=== PATIENT | male | born 2000 ===

== ENCOUNTER 2019-01-23 19:53 | Emergency (ER) | payer MEDICAID ==
[2019-01-23] MEDS ORDERED: cefTRIAXone 500 MG in Lidocaine 1% 2 ML IM ONE (20:12)
[2019-01-23] MEDS ORDERED: Azithromycin 250 MG Tab PO STA (20:13)
--- NOTE | 2019-01-23 20:34 | EDM.PDOC ---
ED HPI GENERAL MEDICAL PROBLEM - General Chief Complaint: Genitourinary Problem Stated Complaint: PAINFUL WHEN URINATES,POSSILBLE STD Time Seen by Provider: 01/23/19 20:02 Source of Information: Reports: Patient History Limitations: Reports: No Limitations - History of Present Illness INITIAL COMMENTS - FREE TEXT/NARRATIVE: HISTORY AND PHYSICAL: History of present illness: Patient is a 18-year-old male who presents to the ED today with concern of burning with urination 2 days. Patient states 4-5 days ago he did have unprotected sexual intercourse with a male partner. Patient denies any other symptoms or concerns. Patient denies fever, chills, chest pain, shortness of breath, or cough. Denies headache, neck stiff ness, change in vision, syncope, or near syncope. Denies nausea, vomiting, abdominal pain, diarrhea, constipation. Has not noted any blood in urine or stool. Patient has been eating and drinking appropriately. Review of systems: As per history of present illness and below otherwise all systems reviewed and negative. Past medical history: As per history of present illness and as reviewed below otherwise noncontributory. Surgical history: As per history of present illness and as reviewed below otherwise noncontributory. Social history: See social history for further information Family history: As per history of present illness and as reviewed below otherwise noncontributory. Physical exam: General: Patient is alert, oriented, and in no acute distress. Patient sitting comfortably on exam table. HEENT: Atraumatic, normocephalic, pupils equal and reactive bilaterally, negative for conjunctival pallor or scleral icterus, mucous membranes moist, TMs normal bilaterally, throat clear, neck supple, nontender, trachea midline. No drooling or trismus noted. No meningeal signs. No hot potato voice noted. Lungs: Clear to auscultation, breath sounds equal bilaterally, chest nontender. Heart: S1S2, regular rate and rhythm without overt murmur Abdomen: Soft, nondistended, nontender. Negative for masses or hepatosplenomegaly. Negative for costovertebral tenderness. Pelvis: Stable nontender. Genitourinary: Deferred. Rectal: Deferred. Skin: Intact, warm, dry. No lesions or rashes noted. Extremities: Atraumatic, negative for cords or calf pain. Neurovascular unremarkable. Neuro: Awake, alert, oriented. Cranial nerves II through XII unremarkable. Cerebellum unremarkable. Motor and sensory unremarkable throughout. Exam nonfocal. Notes: Discussed the importance for follow-up with a primary care provider. Also discussed with patient that if he desires full STD screening that he can get this done with his primary care or at the [facility]. Voices understanding and is agreeable to plan of care. Denies any further questions or concerns at this time. Diagnostics: UA, Gonorrhea and Chlamydia, bedside glucose Therapeutics: Azithromycin, Rocephin Prescription: Doxycycline Impression: Urinary tract infection High risk sexual behavior Plan: 1. Take medication as prescribed. You can alternate ibuprofen and Tylenol as checked for pain and discomfort. 2. Follow-up with her primary care provider as discussed. Return to the ED as needed and as discussed. 3. If he desired full STD screening, you can get this done with your primary care provider or at the [facility]. Definitive disposition and diagnosis as appropriate pending reevaluation and review of above. - Related Data Allergies Allergy/AdvReac Type Severity Reaction Status Date / Time No Known Allergies Allergy Verified 01/23/19 20:06 Home Meds: Home Meds Doxycycline [Vibramycin] 100 mg PO BID 10 Days #20 cap 01/23/19 [Rx] Past Medical History - Past Health History Medical/Surgical History: Denies Medical/Surgical History Social & Family History - Family History Family Medical History: Noncontributory - Tobacco Use Smoking Status *Q: Never Smoker - Recreational Drug Use Recreational Drug Use: No ED ROS GENERAL - Review of Systems Review Of Systems: Comprehensive ROS is negative, except as noted in HPI. ED EXAM, GENERAL - Physical Exam Exam: See Below (See dictation) Course - Vital Signs Last Recorded V/S: Last Vital Signs Temp 97.5 F 01/23/19 20:07 Pulse 110 01/23/19 20:07 Resp 20 01/23/19 20:07 BP 136/92 H 01/23/19 20:07 Pulse Ox 96 01/23/19 20:07 - Orders/Labs/Meds Orders: Active Orders 24 hr Category Date Time Status Glucose [Blood Glucose Check, Bedside] [RC] ONETIME Care 01/23/19 20:51 Active CHLAMYDIA AND GONORRHEA BY TMA Stat Lab 01/23/19 20:08 Received CULTURE URINE [RM] Stat Lab 01/23/19 20:08 Received Labs: Laboratory Tests 01/23/19 Range/Units 20:08 Urine Color YELLOW Urine Appearance HAZY Urine pH 6.5 (5.0-8.0) Ur Specific [place] 1.025 (1.001-1.035) Urine Protein NEGATIVE (NEGATIVE) mg/dL Urine Glucose (UA) 250 H (NEGATIVE) mg/dL Urine Ketones NEGATIVE (NEGATIVE) mg/dL Urine Occult Blood NEGATIVE (NEGATIVE) Urine Nitrite NEGATIVE (NEGATIVE) Urine Bilirubin NEGATIVE (NEGATIVE) Urine Urobilinogen 1.0 (<2.0) EU/dL Ur Leukocyte Esterase TRACE H (NEGATIVE) Urine RBC 0-3 (0-2/HPF) Urine WBC 4-7 (0-5/HPF) Ur Epithelial Cells RARE (NONE-FEW) Urine Bacteria 3+ H (NEGATIVE) Urine Mucus LIGHT (NONE-MOD) Meds: Medications Discontinued Medications Generic Name Dose Route Start Last Admin Trade Name Freq PRN Reason Stop Dose Admin Azithromycin 1,000 mg 01/23/19 20:13 01/23/19 20:31 Zithromax PO 01/23/19 20:14 1,000 mg NOW STA Administration Ceftriaxone Sodium 500 mg/ 2 mls @ 2 mls/sec 01/23/19 20:12 01/23/19 20:32 Lidocaine HCl IM 01/23/19 20:13 2 mls/sec ONETIME ONE Administration Departure - Departure Time of Disposition: 20:56 Disposition: Home, Self-Care 01 Clinical Impression: Urinary tract infection Qualifiers: Urinary tract infection type: acute cystitis Hematuria presence: without hematuria Qualified Code(s): N30.00 - Acute cystitis without hematuria High risk sexual behavior Qualifiers: High risk sexual behavior type: homosexual Qualified Code(s): Z72.52 - High risk homosexual behavior - Discharge Information Prescriptions: Doxycycline [Vibramycin] 100 mg PO BID 10 Days #20 cap Referrals: PCP,Not In Area [Primary Care Provider] - Forms: ED Department Discharge Additional Instructions: The following information is given to patients seen in the emergency department who are being discharged to home. This information is to outline your options for follow-up care. We provide all patients seen in our emergency department with a follow-up referral. The need for follow-up, as well as the timing and circumstances, are variable depending upon the specifics of your emergency department visit. If you don't have a primary care physician on staff, we will provide you with a referral. We always advise you to contact your personal physician following an emergency department visit to inform them of the circumstance of the visit and for follow-up with them and/or the need for any referrals to a consulting specialist. The emergency department will also refer you to a specialist when appropriate. This referral assures that you have the opportunity for follow-up care with a specialist. All of these measure are taken in an effort to provide you with optimal care, which includes your follow-up. Under all circumstances we always encourage you to contact your private physician who remains a resource for coordinating your care. When calling for follow-up care, please make the office aware that this follow-up is from your recent emergency room visit. If for any reason you are refused follow-up, please contact the [facility] Emergency Department at and asked to speak to the emergency department charge nurse. [facility] [address] [place] [id number] [facility] [address] [place] [id number] [facility] [address] [place] [address] 1. Take medication as prescribed. You can alternate ibuprofen and Tylenol as checked for pain and discomfort. 2. Follow-up with her primary care provider as discussed. Return to the ED as needed and as discussed. 3. If he desired full STD screening, you can get this done with your primary care provider or at the [facility]. - My Orders Last 24 Hours: My Active Orders 01/23/19 20:08 CHLAMYDIA AND GONORRHEA BY TMA Stat CULTURE URINE [RM] Stat 01/23/19 20:51 Glucose [Blood Glucose Check, Bedside] [RC] ONETIME - Assessment/Plan Last 24 Hours: My Active Orders 01/23/19 20:08 CHLAMYDIA AND GONORRHEA BY TMA Stat CULTURE URINE [RM] Stat 01/23/19 20:51 Glucose [Blood Glucose Check, Bedside] [RC] ONETIME
== END 2019-01-23 21:10 | disposition home or self-care (01) ==
LOC: MW.ED 19:53 → EDBD 19:53 → MW.ED 21:10
DX: N30.00 Acute cystitis without hematuria (principal); Z72.52 High risk homosexual behavior
CPT/HCPCS: 81001; 82962; 87086; 87491; 87591; 99283; A9270; J0696; J2001

== ENCOUNTER 2019-11-05 17:30 | Emergency (ER) | payer MEDICAID ==
[2019-11-05] MEDS ORDERED: Ketorolac 60 MG/2 ML SDV IM ONE (17:45)
--- NOTE | 2019-11-05 18:08 | CR ---
INDICATION: Left foot pain. TECHNIQUE: Three views left foot. COMPARISON: No prior. FINDINGS: No acute fracture. Joint spaces maintained. No malalignment. No radiopaque foreign body or soft tissue gas. IMPRESSION: No acute fracture or malalignment. Dictated by Jaxon Shelton MD @ 11/05/2019 6:07:04 PM Dictated by: Jaxon Shelton MD @ 11/05/2019 18:07:15 (Electronically Signed)
--- NOTE | 2019-11-05 18:21 | EDM.PDOC ---
ED HPI GENERAL MEDICAL PROBLEM - General Chief Complaint: Lower Extremity Injury/Pain Stated Complaint: LT FOOT PAIN Time Seen by Provider: 11/05/19 17:34 Source of Information: Reports: Patient History Limitations: Reports: No Limitations - History of Present Illness INITIAL COMMENTS - FREE TEXT/NARRATIVE: HISTORY AND PHYSICAL: History of present illness: Patient is a 19-year-old male who presents to the emergency room with complaints of left anterior midfoot pain. He states he was running approximately a week ago when he felt pain to the top of his foot. This pain has continued and radiates up the foot and into the plantar surface of his foot. He denies any injury, trauma or falls. He denies any numbness, tingling, saddle paresthesia or weakness of the extremity. Pain is notable with weightbearing. Patient denies any fever, chills, headache, change in vision, syncope or near syncope. Denies any chest pain, back pain, shortness of breath or cough. Denies any GI or symptoms. Patient has been eating and drinking appropriately. Review of systems: As per history of present illness and below otherwise all systems reviewed and negative. Past medical history: As per history of present illness and as reviewed below otherwise noncontributory. Surgical history: As per history of present illness and as reviewed below otherwise noncontributory. Social history: See social history for further information Family history: As per history of present illness and as reviewed below otherwise noncontributory. Physical exam: General: Well developed and well nourished. Alert and orientated x 3. Nontoxic in appearance and in no acute distress. Vital signs are stable and have been reviewed by me. Nursing notes were reviewed. HEENT: Atraumatic, normocephalic, pupils equal and reactive bilaterally, negative for conjunctival pallor or scleral icterus, mucous membranes moist, trachea midline. No drooling or trismus noted. No meningeal signs. No hot potato voice noted. Lungs: Clear to auscultation, breath sounds equal bilaterally, chest nontender. Normal work of breathing, no accessory muscles used. Heart: S1S2, regular rate and rhythm without overt murmur Abdomen: Soft, nondistended, nontender. Skin: Intact, warm, dry. No lesions or rashes noted. Hematologic: No petechiae or purpra. Mucosa appropriate color and normal nail bed color and refill. Extremities: Atraumatic, moves all extremities per self without difficulty or deficits, pain with palpation of the dorsal aspect of the left mid foot. No malleolus tenderness. Good flexion and extension of the foot. Strong pedal and pretibial pulse. Negative for cords or calf pain. Neurovascular unremarkable. Neuro: Awake, alert, oriented. Cranial nerves II through XII unremarkable. Cerebellum unremarkable. Motor and sensory unremarkable throughout. Exam nonfocal. Psychiatric: Mood and affect are appropriate. Normal thought process. Answering questions appropriately. Notes: X-ray shows no bony abnormalities. I have spoken with the patient/caregiver and discussed today's findings, in addition to providing specific details for plan of care. Reassessment at the time of disposition demonstrates that the patient is in no acute distress. The patient has remained stable throughout the entire ED visit and is without objective evidence for acute process requiring urgent intervention or hospitalization. The patient is stable for discharge, counseling was provided as , and we discussed in great detail signs and symptoms that would prompt them to return to the Emergency Department. Medication, follow up and supportive care measures were reviewed and discussed. Voices understanding and is agreeable to plan of care. Denies any further questions or concerns at this time. Diagnostics: Foot x-ray Therapeutics: [place] Prescription: Diclofenac Impression: Foot tendinitis Plan: 1. Today your exam is consistent with a tendinitis of the extensor tendon of your foot. Rest, ice, elevate as able. Limit physical activities that cause pain. Try to be nonweightbearing to allow the foot to rest/heal over the next week. 2. Tylenol and/or ibuprofen as needed for pain management. 3. We encourage you to follow up with your primary care provider and/or recommended specialist in the next few days for re-evaluation and further care/management. If your symptoms should worsen, new symptoms develop or any of the signs and symptoms we discussed should arise please return to the emergency room or call 911 (if needed). Definitive disposition and diagnosis as appropriate pending reevaluation and review of above. L top foot Pain Score (Numeric/FACES): 5 - Related Data Allergies Allergy/AdvReac Type Severity Reaction Status Date / Time No Known Allergies Allergy Verified 11/05/19 17:36 Home Meds: Home Meds Diclofenac Sodium [Voltaren] 75 mg PO BIDMEALS PRN #30 tab.cr 11/05/19 [Rx] Past Medical History - Past Health History Medical/Surgical History: Denies Medical/Surgical History - Infectious Disease History Infectious Disease History: Reports: Chicken Pox Social & Family History - Family History Family Medical History: Noncontributory - Caffeine Use Caffeine Use: Reports: Energy Drinks - Recreational Drug Use Recreational Drug Use: No Review of Systems - Review of Systems Review Of Systems: Comprehensive ROS is negative, except as noted in HPI. ED EXAM, GENERAL - Physical Exam Exam: See Below (See dictation) Course - Vital Signs Last Recorded V/S: Last Vital Signs Temp 97.5 F 11/05/19 17:37 Pulse 88 11/05/19 17:37 Resp 20 11/05/19 17:37 BP 119/77 11/05/19 17:37 Pulse Ox 96 11/05/19 17:37 - Orders/Labs/Meds Orders: Active Orders 24 hr Category Date Time Status DME for Discharge [COMM] Stat Oth 11/05/19 18:23 Ordered Meds: Medications Discontinued Medications Generic Name Dose Route Start Last Admin Trade Name Adam PRN Reason Stop Dose Admin Ketorolac Tromethamine 60 mg 11/05/19 17:45 11/05/19 17:56 Toradol IM 11/05/19 17:46 60 mg ONETIME ONE Administration Departure - Departure Time of Disposition: 18:20 Disposition: Home, Self-Care 01 Clinical Impression: Foot tendinitis - Discharge Information Prescriptions: Diclofenac Sodium [Voltaren] 75 mg PO BIDMEALS PRN #30 tab.cr PRN Reason: Pain Referrals: PCP,None [Primary Care Provider] - Forms: ED Department Discharge Additional Instructions: The following information is given to patients seen in the emergency department who are being discharged to home. This information is to outline your options for follow-up care. We provide all patients seen in our emergency department with a follow-up referral. The need for follow-up, as well as the timing and circumstances, are variable depending upon the specifics of your emergency department visit. If you don't have a primary care physician on staff, we will provide you with a referral. We always advise you to contact your personal physician following an emergency department visit to inform them of the circumstance of the visit and for follow-up with them and/or the need for any referrals to a consulting spe cialist. The emergency department will also refer you to a specialist when appropriate. This referral assures that you have the opportunity for follow-up care with a specialist. All of these measure are taken in an effort to provide you with optimal care, which includes your follow-up. Under all circumstances we always encourage you to contact your private physician who remains a resource for coordinating your care. When calling for follow-up care, please make the office aware that this follow-up is from your recent emergency room visit. If for any reason you are refused follow-up, please contact the [facility] Emergency Department at and asked to speak to the emergency department charge nurse. [facility] [address] [place] [id number] [facility] [address] [place] [id number] Thank you for choosing the [facility] emergency department in [place] for your medical needs today. It was a pleasure caring for you. Today you were seen in the emergency department for foot pain. 1. Today your exam is consistent with a tendinitis of the extensor tendon of your foot. Rest, ice, elevate as able. Limit physical activities that cause pain. Try to be nonweightbearing to allow the foot to rest/heal over the next week. 2. Tylenol and/or ibuprofen as needed for pain management. 3. We encourage you to follow up with your primary care provider and/or recommended specialist in the next few days for re-evaluation and further care/management. If your symptoms should worsen, new symptoms develop or any of the signs and symptoms we discussed should arise please return to the emergency room or call 911 (if needed). Sepsis Event Note (ED) - Evaluation Sepsis Screening Result: No Definite Risk - Focused Exam Vital Signs: Vital Signs Temp Pulse Resp BP Pulse Ox 11/05/19 17:37 97.5 F 88 20 119/77 96 - My Orders Last 24 Hours: My Active Orders 11/05/19 18:23 DME for Discharge [COMM] Stat - Assessment/Plan Last 24 Hours: My Active Orders 11/05/19 18:23 DME for Discharge [COMM] Stat
== END 2019-11-05 18:37 | disposition home or self-care (01) ==
LOC: MW.ED 17:30
DX: M77.9 Enthesopathy, unspecified (principal)
CPT/HCPCS: 73630; 96372; 99283; J1885

== ENCOUNTER 2020-06-24 18:21 | Emergency (ER) | payer BC, MEDICAID ==
[2020-06-24] MEDS ORDERED: Ketorolac 30 MG/ML SDV IVPUSH ONE (18:51)
[2020-06-24] MEDS ORDERED: Sodium Chloride 0.9% 1,000 ML IV ONE ×2 (18:51→20:03)
--- NOTE | 2020-06-24 18:51 | EDM.PDOC ---
ED HPI GENERAL MEDICAL PROBLEM - General Chief Complaint: Abdominal Pain Stated Complaint: ABDOMINAL PAIN Time Seen by Provider: 06/24/20 18:34 Source of Information: Reports: Patient History Limitations: Reports: No Limitations - History of Present Illness INITIAL COMMENTS - FREE TEXT/NARRATIVE: HISTORY AND PHYSICAL: History of present illness: Patient is a 20-year-old male who presents to the emergency room with complaints of nausea, vomiting, abdominal pain and diarrhea since . He initially started with nausea, vomiting and abdominal pain. He thought he was constipated and took a laxative. Shortly after he developed diarrhea. He states the nausea and vomiting have resolved but continues to have abdominal pain and diarrhea. He has been using Imodium over the past 2 days and the stools have lessened but have not resolved. Patient denies any fever, chills, headache, change in vision, syncope or near syncope. Denies any chest pain, back pain, shortness of breath or cough. Denies any nausea, vomiting, constipation or dysuria. Has not noted any blood in urine or stool. Patient has been eating and drinking appropriately. No recent travel or antibiotic use. Review of systems: As per history of present illness and below otherwise all systems reviewed and negative. Past medical history: As per history of present illness and as reviewed below otherwise noncontributory. Surgical history: As per history of present illness and as reviewed below otherwise noncontributory. Social history: See social history for further information Family history: As per history of present illness and as reviewed below otherwise noncontributory. Physical exam: General: Well developed and well nourished 20 year old male. Alert and orientated x 3. Nontoxic in appearance and in no acute distress. Vital signs are stable and have been reviewed by me. Nursing notes were reviewed. HEENT: Atraumatic, normocephalic, pupils equal and reactive bilaterally, nega tive for conjunctival pallor or scleral icterus, mucous membranes moist, trachea midline. No drooling or trismus noted. No meningeal signs. No hot potato voice noted. Lungs: Clear to auscultation bilaterally. No wheezes, rales, or rhonchi. Chest nontender. Normal work of breathing, no accessory muscles used. Heart: S1S2, regular rate and rhythm without overt murmur, gallops, or rubs. No JVD. No peripheral edema Abdomen: Soft, nondistended, mild RUQ pain. Normoactive bowel sounds. Negative for masses or costovertebral tenderness. Skin: Intact, warm, dry. No lesions or rashes noted. Hematologic: No petechiae or purpra. Mucosa appropriate color and normal nail bed color and refill. Extremities: Atraumatic, moves all extremities per self without difficulty or deficits, negative for cords or calf pain. Neurovascular unremarkable. Neuro: Awake, alert, oriented. Cranial nerves II through XII unremarkable. Cerebellum unremarkable. Motor and sensory unremarkable throughout. Exam nonfocal. Psychiatric: Mood and affect are appropriate. Normal thought process. Answering questions appropriately. Notes: *This patient was seen and evaluated during the 2019 SARS-CoV-2 novel coronavirus pandemic period. Community viral transmission is ongoing at time of this encounter and the emergency department is operating under pandemic response procedures. Patient has note been able to give stool sample while here. He does have potassium on 2.9, will do IV replacement and PO as he is tolerating PO. We discussed admssion, he declines, stating he can't miss work. We discussed the risks of untreated hypokalemia, espeicially if he continues to have diarrhea. He is aware of the risks, will stay for one dose of IV potassium. VSS. Upon nursing preparing patient for medications, he now declines the IV potassium. States the IV hurts and he wants to go home. He is aware of the risks of leaving with untreated potassium. I have talked with the patient about today's findings, in addition to providing specific details for plan of care. Stool sample kit with education given to patient, encouraged him to bring sample if he continues to have diarrhea. Reassessment at the time of disposition demonstrates that the patient is in no acute distress. Counseling was provided and we discussed in great detail signs and symptoms that would prompt them to return to the Emergency Department. Medication, follow up and supportive care measures were reviewed and discussed. Voices understanding to plan of care. Denies any further questions or concerns at this time. Diagnostics: CBC, CMP, Lipase, UA, Stool Studies Therapeutics: IV fluids, Toradol, K-Dur, K-Timbo IV Prescription: K-Dur (#10) Impression: Hypokalemia Diarrhea Plan: 1. You were evaluated today on an emergent basis. Your potassium was low today, requiring oral replacement. Please make sure you are taking the oral potassium replacement as directed. Increase your fluids. If you continue having loose stools/diarrhea, please bring a sample for outpatient labs as we discussed. 2. You can alternate Tylenol and ibuprofen as needed for pain and fever management. 3. We encourage you to follow up with your primary care provider and/or recommended specialist in the next few days for re-evaluation and further care/management. 4. If your symptoms should worsen, new symptoms develop or any of the signs and symptoms we discussed should arise please return to the emergency room or call 911 (if needed). Definitive disposition and diagnosis as appropriate pending reevaluation and review of above. - Related Data Allergies Allergy/AdvReac Type Severity Reaction Status Date / Time No Known Allergies Allergy Verified 06/24/20 18:41 Home Meds: Home Meds Potassium Chloride 20 meq PO BID 5 Days #10 tablet.er 06/24/20 [Rx] Past Medical History - Past Health History Medical/Surgical History: Denies Medical/Surgical History HEENT History: Reports: None Cardiovascular History: Reports: None Respiratory History: Reports: None Gastrointestinal History: Reports: None Genitourinary History: Reports: None Musculoskeletal History: Reports: None Neurological History: Reports: None Psychiatric History: Reports: None Endocrine/Metabolic History: Reports: None Hematologic History: Reports: None Immunologic History: Reports: None Oncologic (Cancer) History: Reports: None Dermatologic History: Reports: None - Infectious Disease History Infectious Disease History: Reports: Chicken Pox - Past Surgical History Head Surgeries/Procedures: Reports: None HEENT Surgical History: Reports: None Cardiovascular Surgical History: Reports: None Respiratory Surgical History: Reports: None GI Surgical History: Reports: None Male Surgical History: Reports: None Endocrine Surgical History: Reports: None Neurological Surgical History: Reports: None Musculoskeletal Surgical History: Reports: None Oncologic Surgical History: Reports: None Dermatological Surgical History: Reports: None Social & Family History - Family History Family Medical History: No Pertinent Family History - Tobacco Use Tobacco Use Status *Q: Never Tobacco User - Caffeine Use Caffeine Use: Reports: None - Recreational Drug Use Recreational Drug Use: No ED ROS GENERAL - Review of Systems Review Of Systems: Comprehensive ROS is negative, except as noted in HPI. ED EXAM, GI/ABD - Physical Exam Exam: See Below (See dictation) Course - Vital Signs Last Recorded V/S: Last Vital Signs Temp 98.4 F 06/24/20 18:41 Pulse 99 06/24/20 18:41 Resp 18 06/24/20 18:41 BP 133/71 06/24/20 18:41 Pulse Ox 98 06/24/20 18:41 - Orders/Labs/Meds Orders: Active Orders 24 hr Category Date Time Status EKG Documentation Completion [RC] STAT Care 06/24/20 19:55 Active CAMPYLOBACTER CULT [MREF] Stat Lab 06/24/20 20:08 Ordered OVA & PARASITES BY IMMUNOASSAY [MREF] Stat Lab 06/24/20 20:08 Ordered STOOL CULTURE/SHIGA TOXIN [MREF] Stat Lab 06/24/20 20:08 Ordered UA RFX BIMAL AND CULT IF INDIC [URIN] Stat Lab 06/24/20 18:34 Ordered Potassium Chloride Riders [KCL in Water 40 MEQ/100 ML] Med 06/24/20 20:03 Active 40 meq Premix Bag 1 bag IV ONETIME Sodium Chloride 0.9% [Normal Saline] 1,000 ml Med 06/24/20 20:03 Active IV STAT Medication Orders Potassium Chloride 40 meq/ (Premix) 100 mls @ 25 mls/hr IV ONETIME ONE Stop: 06/25/20 00:02 Sodium Chloride (Normal Saline) 1,000 mls @ 250 mls/hr IV STAT ONE Stop: 06/25/20 00:02 Labs: Laboratory Tests 06/24/20 06/24/20 Range/Units 19:10 19:10 WBC 4.78 (4.0-11.0) K/uL RBC 5.10 (4.50-5.90) M/uL Hgb 14.4 (13.0-17.0) g/dL Hct 43.3 (38.0-50.0) % MCV 84.9 (80.0-98.0) fL MCH 28.2 (27.0-32.0) pg MCHC 33.3 (31.0-37.0) g/dL RDW Std Deviation 39.3 (28.0-62.0) fl RDW Coeff of Starla 13 (11.0-15.0) % Plt Count 242 (150-400) K/uL MPV 10.90 (7.40-12.00) fL Neut % (Auto) 51.7 (48.0-80.0) % Lymph % (Auto) 36.2 (16.0-40.0) % Beadle % (Auto) 11.5 (0.0-15.0) % Eos % (Auto) 0.2 (0.0-7.0) % Baso % (Auto) 0.4 (0.0-1.5) % Neut # (Auto) 2.5 (1.4-5.7) K/uL Lymph # (Auto) 1.7 (0.6-2.4) K/uL Beadle # (Auto) 0.6 (0.0-0.8) K/uL Eos # (Auto) 0.0 (0.0-0.7) K/uL Baso # (Auto) 0.0 (0.0-0.1) K/uL Nucleated RBC % 0.0 /100WBC Nucleated RBCs # 0 K/uL Sodium 139 (136-148) mmol/L Potassium 2.9 L (3.5-5.1) mmol/L Chloride 101 (98-107) mmol/L Carbon Dioxide 26.8 (21.0-32.0) mmol/L BUN 9 (7.0-18.0) mg/dL Creatinine 1.0 (0.8-1.3) mg/dL Est Cr Clr Drug Dosing 108.33 mL/min Estimated GFR (MDRD) > 60.0 ml/min Glucose 83 (74-106) mg/dL Calcium 8.2 L (8.5-10.1) mg/dL Total Bilirubin 0.3 (0.2-1.0) mg/dL AST 22 (15-37) IU/L ALT 30 (14-63) IU/L Alkaline Phosphatase 95 (46-116) U/L Total Protein 7.5 (6.4-8.2) g/dL Albumin 3.8 (3.4-5.0) g/dL Globulin 3.7 (2.6-4.0) g/dL Albumin/Globulin Ratio 1.0 (0.9-1.6) Lipase 45 L (73-393) U/L Meds: Medications Generic Name Dose Route Start Last Admin Trade Name Freq PRN Reason Stop Dose Admin Potassium Chloride 40 meq/ 100 mls @ 25 mls/hr 06/24/20 20:03 Premix IV 06/25/20 00:02 ONETIME ONE Sodium Chloride 1,000 mls @ 250 mls/hr 06/24/20 20:03 Normal Saline IV 06/25/20 00:02 STAT ONE Discontinued Medications Generic Name Dose Route Start Last Admin Trade Name Adam PRN Reason Stop Dose Admin Sodium Chloride 1,000 mls @ 999 mls/hr 06/24/20 18:51 06/24/20 19:16 Normal Saline IV 06/24/20 19:51 999 mls/hr STAT ONE Administration Ketorolac Tromethamine 30 mg 06/24/20 18:51 06/24/20 19:16 Ketorolac 30 Mg/Ml Sdv IVPUSH 06/24/20 18:52 30 mg ONETIME ONE Administration Potassium Chloride 40 meq 06/24/20 19:55 Potassium Chloride 20 Meq Tab.Er PO 06/24/20 19:56 ONETIME ONE Departure - Departure Time of Disposition: 20:40 Disposition: Home, Self-Care 01 Clinical Impression: Hypokalemia Diarrhea Qualifiers: Diarrhea type: unspecified type Qualified Code(s): R19.7 - Diarrhea, unspecified - Discharge Information Prescriptions: Potassium Chloride 20 meq PO BID 5 Days #10 tablet.er Instructions: Hypokalemia, Diarrhea, Adult, [id number] Referrals: PCP,None [Primary Care Provider] - Forms: ED Department Discharge Additional Instructions: The following information is given to patients seen in the emergency department who are being discharged to home. This information is to outline your options for follow-up care. We provide all patients seen in our emergency department with a follow-up referral. The need for follow-up, as well as the timing and circumstances, are variable depending upon the specifics of your emergency department visit. If you don't have a primary care physician on staff, we will provide you with a referral. We always advise you to contact your personal physician following an emergency department visit to inform them of the circumstance of the visit and for follow-up with them and/or the need for any referrals to a consulting specialist. The emergency department will also refer you to a specialist when appropriate. This referral assures that you have the opportunity for follow-up care with a specialist. All of these measure are taken in an effort to provide you with optimal care, which includes your follow-up. Under all circumstances we always encourage you to contact your private physician who remains a resource for coordinating your care. When calling for follow-up care, please make the office aware that this follow-up is from your recent emergency room visit. If for any reason you are refused follow-up, please contact the [facility] Emergency Department at and asked to speak to the emergency department charge nurse. [facility] [address] [place] [address] [facility] [address] [place] [address] Thank you for choosing the [facility] emergency department in [place] for your medical needs today. It was a pleasure caring for you. Today you were seen in the emergency department for diarrhea and abdominal pain. 1. You were evaluated today on an emergent basis. Your potassium was low today, requiring IV (refused) and oral replacement. Please make sure you are taking the oral potassium replacement as directed. Increase your fluids. If you continue having loose stools/diarrhea, please bring a sample for outpatient labs as we discussed. 2. You can alternate Tylenol and ibuprofen as needed for pain and fever management. 3. We encourage you to follow up with your primary care provider and/or recommended specialist in the next few days for re-evaluation and further care/management. 4. If your symptoms should worsen, new symptoms develop or any of the signs and symptoms we discussed should arise please return to the emergency room or call 911 (if needed). Sepsis Event Note (ED) - Evaluation Sepsis Screening Result: No Definite Risk - Focused Exam Vital Signs: Vital Signs Temp Pulse Resp BP Pulse Ox 06/24/20 18:41 98.4 F 99 18 133/71 98 - My Orders Last 24 Hours: My Active Orders 06/24/20 18:34 UA RFX BIMAL AND CULT IF INDIC [URIN] Stat 06/24/20 19:55 EKG Documentation Completion [RC] STAT 06/24/20 20:03 Potassium Chloride Riders [KCL in Water 40 MEQ/100 ML] 40 meq Premix Bag 1 bag IV ONETIME Sodium Chloride 0.9% [Normal Saline] 1,000 ml IV STAT 06/24/20 20:08 CAMPYLOBACTER CULT [MREF] Stat OVA & PARASITES BY IMMUNOASSAY [MREF] Stat STOOL CULTURE/SHIGA TOXIN [MREF] Stat - Assessment/Plan Last 24 Hours: My Active Orders 06/24/20 18:34 UA RFX BIMAL AND CULT IF INDIC [URIN] Stat 06/24/20 19:55 EKG Documentation Completion [RC] STAT 06/24/20 20:03 Potassium Chloride Riders [KCL in Water 40 MEQ/100 ML] 40 meq Premix Bag 1 bag IV ONETIME Sodium Chloride 0.9% [Normal Saline] 1,000 ml IV STAT 06/24/20 20:08 CAMPYLOBACTER CULT [MREF] Stat OVA & PARASITES BY IMMUNOASSAY [MREF] Stat STOOL CULTURE/SHIGA TOXIN [MREF] Stat
[2020-06-24 19:43] LABS: BLOOD UREA NITROGEN,BUN 9 mg/dL (7.0-18.0); CARBON DIOXIDE,CO2 26.8 mmol/L (21.0-32.0); CHLORIDE,CL 101 mmol/L (98-107); GLUCOSE RANDOM 83 mg/dL (74-106); LIPASE 45 U/L (73-393); POTASSIUM,K 2.9 mmol/L (3.5-5.1); SODIUM,NA 139 mmol/L (136-148)
[2020-06-24] MEDS ORDERED: Potassium Chloride 20 MEQ Tab.ER PO ONE (19:55)
[2020-06-24] MEDS ORDERED: Potassium Chloride Riders 40 MEQ in Premix Bag 1 BAG IV ONE (20:03)
--- NOTE | 2020-06-24 20:11 | PCM.EKG ---
#1 Interpretation EKG Date: 06/24/20 Time: 20:11 EKG Interpretation Comments: Normal sinus rhythm rate of 81 normal axis and intervals QRS duration normal QTC normal at 419. No acute ischemia. Diffusely flattened T waves due to likely reflect his known hypokalemia.
== END 2020-06-24 20:59 | disposition home or self-care (01) ==
LOC: MW.ED 18:21
DX: R19.7 Diarrhea, unspecified (principal); E87.6 Hypokalemia
CPT/HCPCS: 36415; 80053; 83690; 85025; 93005; 96374; 99284; J1885; J7030